=== PATIENT | female | born 1955 | race Hispanic/Latino ===

== ENCOUNTER 2021-08-27 19:50 | Emergency (ER) | payer MEDICARE, MEDICAID, SELFPAY ==
[2021-08-27 19:50] VITALS: BP 142/85; PULSE 77; RESP 16; TEMP 36.6; O2SAT 96; BMI 38.9
--- NOTE | 2021-08-27 20:08 | ED.VIS.LOWEX ---
HPI History of Present Illness Chief Complaint: Lower Extremity Injury Informant: patient and family Onset/Context/Timing Onset: - (Intermittent, worse today) Current Severity: Moderate Maximum Severity: Moderate Narrative Narrative: Patient presents secondary to left knee pain. She had a left knee replacement done at [facility] 3 months ago. She has had intermittent pain since that time. Daughter states usually she will take ibuprofen or Aleve for the pain gets better. Today she is had pain throughout the day. She is still doing some physical therapy. She is using a cane to help her get around. Daughter does note that she seemed to complain of more pain after going down some steps today. She did have 2 falls last week but seem to be doing okay after that. No fall today. PFSH [facility] Medical History Autism High blood pressure Home Medications hydrocodone-acetaminophen 1 tab PO Q6H PRN 3 Days #10 tab 08/27/21 [Rx Last Taken Unknown] Allergy/AdvReac Type Severity Reaction Status Date / Time No Known Allergies Allergy Verified 08/27/21 19:53 Surgical History Knee joint replacement status Social History Smoking Status: Never smoker ROS ROS ED Constitutional Constitutional ED: Denies chills or fever(s) Eyes Eyes: Denies change in vision ENT ENT ED: Denies sore throat Cardiovascular Cardiovascular: Denies chest pain Respiratory/Chest Respiratory/Chest: Denies cough or dyspnea Gastrointestinal Gastrointestinal: Denies abdominal pain, nausea or vomiting Genitourinary Genitourinary ED: Denies dysuria Musculoskeletal Musculoskeletal: Reports arthralgias; Denies back pain or neck pain Integumentary Denies rash Neurologic Neurologic: Denies headache(s) or paresthesias Allergic/Immunologic Allergic/Immunologic ED: Denies urticaria EXAM Physical Exam Const Vital Signs: 08/27/21 19:50 Temperature 97.8 F Temperature Source Temporal Pulse Rate 77 Respiratory Rate 16 Blood Pressure 142/85 H Blood Pressure Mean 104 Pulse Ox 96 Oxygen Delivery Method Room Air Positive well nourished and well developed General Appearance ED: well developed HEENT Reports moist mucous membranes Eyes PERRL Neck full ROM Chest Wall inspection of chest normal and palpation of chest normal Resp normal respiratory effort and clear to auscultation bilaterally Cardio regular rate and regular rhythm GI non-tender Palpation: soft Extremity Extremity Narrative: Mild tenderness along the medial aspect of the right knee. No significant effusion or edema. Some pain with range of motion. Ligaments are tight on testing. No erythema or excessive warmth. Strong distal pulses. Neuro oriented x3 Sensorium / Orientation: alert Skin Lesions: no lesions Rashes: no rashes MDM MDM MDM Narrative Medical decision making narrative: Patient given having [place] for pain. Left knee x-rays obtained. Radiography Diagnostic Testing: Clinical Impression(s) from Imaging Studies Knee X-Ray 08/27/21 20:13 IMPRESSION: Trace joint effusion. Knee replacement. Electronically Signed: Bj Mendez MD (Brooks) at 20:29 EDT Reading Location ID and State: [facility] / [place] , Service support , Treatment and Re-Evaluation Narrative: Left knee x-ray per my interpretation reveals chronic bony changes. Hardware intact. Radiologist interpretation reviewed. Test results discussed with patient and daughter at bedside. Jayden wrap will be applied. I will write her a short course of [place]. She is to follow-up with her surgeon this coming week. Discharge Plan Triage Chief Complaint: Lower Extremity Injury ED Provider: Ibis Alvarado Dx/Rx/DC Orders Clinical Impression: Left knee sprain Instructions: ED Knee Sprain Prescriptions: New hydrocodone-acetaminophen 5-325 mg tablet 1 tab PO Q6H PRN (Reason: pain) 3 Days Qty: 10 RF: 0 Primary Care Provider: Santiago Holloway Referrals: Santiago Holloway MD [Primary Care Provider] - Activity Restrictions/Additional Instructions: Follow-up with your surgeon as discussed. Disposition Disposition: Home, Self Care Discharge Date/Time: 08/27/21 21:00
[2021-08-27] MEDS: HYDROcodone Bitartrate/Apap 5/325 Tablet PO (20:12)
--- NOTE | 2021-08-27 20:13 | RAD_ITS ---
STUDY: X-RAY - LEFT KNEE REASON FOR EXAM: Female, 66 years old. COMPLAINS OF LEFT KNEE PAIN SINCE SURGERY 3 MONTHS AGO, WORSE TODAY. TECHNIQUE: 4 view(s) of the knee. COMPARISON: None. FINDINGS: Normal visualized distal femur. Normal visualized proximal tibia and fibula. Normal proximal tibiofibular articulation. Knee replacement in radiographic alignment. There is no demonstrated joint effusion. The soft tissue structures are unremarkable. RAD/Knee 4 or More Views IMPRESSION: Trace joint effusion. Knee replacement. Electronically Signed: Bj Mendez MD (Brooks) at 20:29 EDT Reading Location ID and State: [facility] / [place] , Service support ,
== END 2021-08-27 21:00 | disposition home or self-care (01) ==
PROVIDERS: Emergency Provider Emergency Medicine; PCP Family Medicine; Visit Provider Emergency Medicine
DX: S83.92XA Sprain of unspecified site of left knee, initial encounter (principal); Z96.659 Presence of unspecified artificial knee joint; F84.0 Autistic disorder; I10 Essential (primary) hypertension; W19.XXXA Unspecified fall, initial encounter
CPT/HCPCS: 73564; 99283

== ENCOUNTER 2021-09-15 14:00 | Emergency (ER) | payer MEDICARE, MEDICAID, SELFPAY ==
[2021-09-15 14:02] VITALS: BP 146/85; PULSE 76; RESP 18; TEMP 36.8; O2SAT 96; BMI 32.6
--- NOTE | 2021-09-15 14:15 | CT_ITS ---
STUDY: CT ABDOMEN AND PELVIS WITH CONTRAST REASON FOR EXAM: Female, 66 years old. Left-sided abdominal pain with nausea. RADIATION DOSAGE (If Supplied By Facility): CTDIvol = ( 15.99 ) mGy, DLP = ( 1123.79 ) mGycm TECHNIQUE: Transaxial images were obtained from the dome of the diaphragm to the symphysis pubis without oral contrast. IV 100mL Isovue-300 was administered. Sagittal and coronal images were reconstructed. Individualized dose optimization techniques were used for this CT. COMPARISON: None. FINDINGS: The visualized lung bases are unremarkable. The visualized portions of the heart are within normal limits. Normal liver. There are multiple gallstones. Normal spleen. Normal pancreas. Normal bilateral adrenal glands. Normal right kidney. Left renal parapelvic cysts. Normal visualized stomach. Normal small intestine. There is circumferential thickening of the wall of the rectum more prominent on the left side. Clinical correlation is recommended. Scattered sigmoid diverticula. The appendix is visualized and appears normal. Normal abdominal aorta. Normal inferior vena cava. Normal retroperitoneum. Normal urinary bladder. Normal abdominal wall. There are diffuse degenerative changes of the visualized lumbar spine. Mild levoscoliosis. CT/Abdomen/Pelvis W IV Cont ONLY IMPRESSION: Diffuse mural thickening of the rectum worse on the left side. Clinical correlation recommended. Cholelithiasis. Electronically Signed: Chaitanya Syed MD at 15:27 EDT ,
--- NOTE | 2021-09-15 14:18 | EDS_ITS ---
HPI HPI - GI History of Present Illness Chief Complaint: Abd Pain Narrative Narrative: Patient presents with left lower quadrant abdominal pain/flank pain that she has had for the last 1 week. Her daughter states that she is supposed to have an ultrasound performed for her pain as an outpatient but it is not for few days. She describes sharp stabbing pain in the left lower quadrant. No problems with bowel movements, no diarrhea or blood in her stool. She denies any dysuria or hematuria. History and physical is mildly limited secondary to the patient's problems with memory. No fevers or chills. No cough. No other symptoms. [facility] Medical History Autism High blood pressure Home Medications hydrocodone-acetaminophen 1 tab PO Q6H PRN 3 Days #10 tab 08/27/21 [Rx Last Taken Unknown] ciprofloxacin HCl [Cipro] 500 mg PO BID #20 tab 09/15/21 [Rx Last Taken Unknown] metronidazole 500 mg PO TID #30 tab 09/15/21 [Rx Last Taken Unknown] Allergy/AdvReac Type Severity Reaction Status Date / Time No Known Allergies Allergy Verified 09/15/21 14:03 Surgical History Knee joint replacement status Social History Smoking Status: Never smoker ROS ROS ED ROS Narrative Constitutional: No fever, no chills. HEENT: No sore throat. No neck pain. No loss of vision. No rhinorrhea. Cardiovascular: No chest pain. No palpitations. No pedal edema. Respiratory: No cough, no shortness of breath. Abdominal: Left lower quadrant abdominal pain. No nausea. No vomiting. No pain with bowel movements. Genitourinary: No dysuria. No hematuria. Left lower quadrant to left flank pain Musculoskeletal: No myalgias. No arthralgias. Neurologic: No headaches. No dizziness. No lightheadedness. Skin: No rash. No change in color. Psychiatric: No depression. No anxiety. EXAM Physical Exam Narrative Exam Narrative: Afebrile. Vital signs noted. HEENT: Normocephalic. Atraumatic. PERRL, EOMI. Neck soft and supple. No point tenderness or step off. Cardiovascular: Regular rate and rhythm. No murmurs, rubs, or gallops a ppreciated. Respiratory: No tachypnea. Lungs clear to auscultation bilaterally. Gastrointestinal: Abdomen soft, mild tenderness left lower quadrant, with normoactive bowel sounds. No rebound or guarding. Chaperoned rectal examination shows no evidence of fluctuance, no pain with digital rectal examination. Neurological: Awake. Alert. Nonfocal, nonlateralizing. Skin: No rash. Normal color. No pallor. Musculoskeletal: No pedal edema. Full range of motion extremities. Const Vital Signs: 09/15/21 14:02 09/15/21 17:16 Temperature 98.2 F Temperature Source Temporal Pulse Rate 76 71 Respiratory Rate 18 14 Blood Pressure 146/85 H 143/91 H Blood Pressure Mean 105 Pulse Ox 96 96 Oxygen Delivery Method Room Air MDM MDM MDM Narrative Medical decision making narrative: Comprehensive work-up was pursued. CBC shows normal white count of 5.9, hemoglobin normal at 13.0, hematocrit normal at 38.9. Normal platelet count of 288. Electrolyte panel shows chloride slightly elevated at 112, glucose elevated appropriately at 108 with a normal to low anion gap of 3. Alk phos slightly elevated at 122, but they state that she has liver problems and she has an AST low at 14. Urinalysis shows no evidence of infection. CT of the abdomen pelvis with IV contrast does show that she has mural wall thickening of the rectum left greater than right. I do not feel that this is an abscess. Patient denies any pain with defecation. She will be started on ciprofloxacin and Flagyl. I was able to discuss the patient with Dr. Olivas with gastroenterology. He agrees with antibiotics and close follow-up next week. At this point in time, she will be discharged for follow-up. She will return with any fever, pain with defecation, new or worsening symptoms. Disposition is discharged home in stable condition. Lab Data Attestation: I reviewed the patient's lab results. Labs: Laboratory Results - last 24 hr 09/15/21 09/15/21 09/15/21 14:25 14:25 14:57 WBC 5.9 RBC 4.28 Hgb 13.0 Hct 38.9 MCV 90.9 MCH 30.4 MCHC 33.4 RDW Std Deviation 44.9 H RDW Coeff of Amish 13.5 Plt Count 288 MPV 9.5 Immature Gran % (Auto) 0.300 Neut % (Auto) 70.5 H Lymph % (Auto) 21.0 [place] % (Auto) 6.2 Eos % (Auto) 1.7 Baso % (Auto) 0.3 Absolute Neuts (auto) 4.2 Absolute Lymphs (auto) 1.25 Nucleated RBC % 0 Sodium 144 Potassium 3.7 Chloride 112 H Carbon Dioxide 29.0 Anion Gap 3 L BUN 21 H Creatinine 0.72 Estim Creat Clear Calc 41.19 Est GFR (MDRD) Af Amer 104 Est GFR (MDRD) Non-Af 86 BUN/Creatinine Ratio 29.3 H Glucose 108 H Calcium 8.7 Total Bilirubin 0.20 AST 14 L ALT 21 Alkaline Phosphatase 122 H Total Protein 6.9 Albumin 3.2 Globulin 3.7 Albumin/Globulin Ratio 0.9 Urine Color Yellow Urine Clarity Clear Urine pH 7.0 Ur Specific [place] 1.010 Urine Protein Negative Urine Glucose (UA) Normal Urine Ketones Negative Urine Occult Blood Negative Urine Nitrite Negative Urine Bilirubin Negative Urine Urobilinogen Normal Ur Leukocyte Esterase Negative Urine RBC 0 SEEN Urine WBC 0 SEEN Ur Squamous Epith Cells 0 SEEN Urine Bacteria 0 SEEN Urine Mucus 0 SEEN Radiography Diagnostic Testing: Clinical Impression(s) from Imaging Studies Abdomen/Pelvis CT 09/15/21 14:15 IMPRESSION: Diffuse mural thickening of the rectum worse on the left side. Clinical correlation recommended. Cholelithiasis. Electronically Signed: Chaitanya Syed MD at 15:27 EDT Reading Location ID and State: [facility] / [place] , Service support , Discharge Plan Triage Chief Complaint: Abd Pain ED Provider: Julio Gagnon Dx/Rx/DC Orders Clinical Impression: Abdominal pain, left lower quadrant, Proctitis Instructions: ED Understanding Colitis, ED Abdominal Pain Unkn Cause Fem, ED Flank Pain, Uncertain Cause Prescriptions: New ciprofloxacin HCl [Cipro] 500 mg tablet 500 mg PO BID Qty: 20 RF: 0 metronidazole 500 mg tablet 500 mg PO TID Qty: 30 RF: 0 No Action hydrocodone-acetaminophen 5-325 mg tablet 1 tab PO Q6H PRN (Reason: pain) 3 Days Qty: 10 RF: 0 Primary Care Provider: Santiago Holloway Referrals: Santiago Holloway MD [Primary Care Provider] - Doroteo Olivas DO [STAFF PHYSICIAN] - 5-7 Days Disposition Disposition: Home, Self Care Discharge Date/Time: 09/15/21 17:17
[2021-09-15] MEDS: 0.9% Normal Saline 1,000 ML 1000 ML IV (14:30)
[2021-09-15] MEDS: Morphine 4 MG/ML Syringe IV (14:30)
[2021-09-15] MEDS: Ondansetron 4 MG/2 ML Vial IV (14:33)
[2021-09-15 14:34] LABS: Absolute Lymphocyte Count 1.25 X10^3/uL (0.83-4.51); Absolute Neutrophil Count 4.2 X10^3/uL (2.0-7.7); Basophil# 0.02 X10^3/uL; Basophil% 0.3 % (0-1); Eosinophils% 1.7 % (0-5); Hematocrit 38.9 % (37-47); Lymphocyte # 1.25 X10^3/ul (0.83-4.51); Mean Corp Hgb Conc 33.4 g/dL (32-36); Mean Corpuscular Hgb 30.4 pg (27.0-32.0); Mean Corpuscular Volume 90.9 fL (81-99); Mean Platelet Vol. 9.5 fl (6.2-12.0); Monocyte# 0.37 X10^3/uL; Monocyte% 6.2 % (0-10); NRBC Flagged by Analyzer 0 % (0-5); Neutrophil # 4.18 X10^3/uL (2.7-7.7); Neutrophil % 70.5 % (47-70); Platelet Count 288 K/mm3 (150-450); RBC Distribution Width CV 13.5 % (11.6-14.6); RBC Distribution Width SD 44.9 fl (35.1-43.9); Red Blood Count 4.28 M/mm3 (4.2-5.4); White Blood Count 5.9 K/mm3 (4.4-11.0)
[2021-09-15 14:50] LABS: ALB/GLOB Ratio 0.9 RATIO (0.9-2.4); AST(SGOT) 14 U/L (15-37); Alanine Aminotransfer ALT/SGPT 21 U/L (13-56); Albumin, Serum 3.2 g/dL (3.2-5.0); Alkaline Phosphatase 122 U/L (45-117); Anion Gap 3 (5-15); BUN 21 mg/dL (7-18); BUN/Creat Ratio 29.3 RATIO (10-20); Calcium,Total 8.7 mg/dL (8.5-10.1); Chloride 112 mmol/L (98-107); Creatinine, Serum 0.72 mg/dL (0.55-1.02); EST Glomerular Filtration Rate 86 mL/min (>60); Est Glom Filt Rate - Afr Amer 104 mL/min (>60); Estimated Creatinine Clearance 41.19 ml/min; Globulin 3.7 g/dL (2.2-4.2); Glucose 108 mg/dL (74-106); Potassium 3.7 mmol/L (3.5-5.1); Protein, Total 6.9 g/dL (6.4-8.2); Sodium Level 144 mmol/L (136-145)
[2021-09-15 15:06] LABS: Bacteria 0 SEEN /hpf (None Seen); Mucous, Urine 0 SEEN /hpf (<or=2+); Red Blood Cells-Urine 0 SEEN /hpf (0-5); Squamous Epithelial Cells - UA 0 SEEN /hpf (5-10); White Blood Cells 0 SEEN /hpf (0-5)
[2021-09-15 15:11] LABS: Color, Urine Yellow (Yellow); Glucose, Dipstick Normal (Normal); Ketone-Dipstick Negative (Negative); Leukocyte Esterase-Dipstick Negative /ul (Negative); Nitrite-Dipstick Negative (Negative); Occult Blood-Urine Negative /ul (Negative); Protein-Dipstick Negative (Negative); Urine Bilirubin Dipstick Negative (Negative); Urine Clarity Clear (Clear); Urine Urobilinogen Normal (Normal)
[2021-09-15] MEDS: metroNIDAZOLE 500 MG Tablet PO (17:14)
[2021-09-15] MEDS: Ciprofloxacin 500 MG Tablet PO (17:14)
[2021-09-15 17:16] VITALS: BP 143/91; PULSE 71; RESP 14; O2SAT 96
== END 2021-09-15 17:17 | disposition home or self-care (01) ==
PROVIDERS: Emergency Provider Emergency Medicine; PCP Family Medicine; Visit Provider Emergency Medicine
DX: R10.32 Left lower quadrant pain (principal); K62.89 Other specified diseases of anus and rectum
CPT/HCPCS: 74177; 80053; 81001; 85025; 99284; J7030; Q9967; A4216; J2405

== ENCOUNTER 2022-01-13 22:05 | Emergency (ER) | payer MEDICARE, SELFPAY ==
[2022-01-13 22:06] VITALS: BP 174/100; PULSE 76; RESP 18; TEMP 36.4; O2SAT 100; BMI 36.6
--- NOTE | 2022-01-13 22:25 | ED.VIS.LOWEX ---
HPI History of Present Illness Chief Complaint: Lower Extremity Injury Informant: patient and family Onset/Context/Timing Onset: Weeks (1) Context: Gradual Onset (worse than usual) Timing: Continuous Quality of Pain: Aching Location: in left knee Current Severity: Moderate Maximum Severity: Severe Worsened by: weight bearing/walking, moving Relieved by: remaining still Associated Symptoms Associated Symptoms: Negative for Parasthesia, Weakness or Loss of Funtion Narrative Narrative: Patient had a left total knee arthroplasty at [facility] 9 or 10 months ago. She has been having chronic pain with it ever since. She had a remote right total knee arthroplasty in [place] years ago and has not no issues with that. It has been hurting worse in the past week. Daughter thinks maybe it is because she has been walking her dog a lot. Patient denies any injury. She denies any redness, fevers, chills, or other systemic symptoms. No numbness or weakness. She denies any new swelling in that leg, no history of DVT or PE. She has an appointment next week with her orthopedic office in [place], she has already been referred to pain management because this has been an ongoing issue that has waxed and waned. She is not in pain management yet. She has been taking Tylenol and ibuprofen, the daughter states that they were trying to avoid narcotics because of the addiction potential. [facility] Medical History Autism High blood pressure Home Medications hydrocodone-acetaminophen 5-325mg 5mg-325mg 1 tab PO Q6H PRN pain 3 days #10 tabs 08/27/21 [Rx Last Taken Unknown] ciprofloxacin HCl 500 mg tablet (Cipro) 500 mg PO BID #20 tabs 09/15/21 [Rx Last Taken Unknown] metronidazole 500 mg tablet 500 mg PO TID #30 tabs 09/15/21 [Rx Last Taken Unknown] hydrocodone-acetaminophen 5-325mg 5mg-325mg 1 tab PO Q6H PRN PRN Pain 3 days #10 TABLETS 01/13/22 [Rx Last Taken Unknown] Allergy/AdvReac Type Severity Reaction Status Date / Time No Known Allergies Allergy Verified 01/13/22 22:07 Surgical History Knee joint replacement status Social History Smoking Status: Never smoker ROS ROS ED Constitutional Constitutional ED: Denies chills or fever(s) Musculoskeletal Musculoskeletal: Reports extremity pain; Denies neck pain Integumentary Denies Abrasions, rash or wounds Neurologic Neurologic: Denies paresthesias or weakness EXAM Physical Exam Const Vital Signs: 01/13/22 22:06 Temperature 97.5 F L Temperature Source Temporal Pulse Rate 76 Respiratory Rate 18 Blood Pressure 174/100 H Blood Pressure Mean 124 Pulse Ox 100 Oxygen Delivery Method Room Air Positive well nourished and well developed General Appearance ED: well developed and NAD Neck full ROM and supple Back/Spine normal ROM and normal to inspection Extremity normal to inspection Extremity Narrative: Well-healed anterior surgical incision left knee, no erythema, no warmth compared with other parts of the left lower extremity and the contralateral knee, intact strong pulse, extensor mechanism intact. Able to bend but only to around 90 degrees or may be a little short of that, she grimaces at that point but it is relatively painless in between. There is no effusion clinically. There is no popliteal tenderness. There is no calf tenderness. There are no skin lesions or rash. Neuro oriented x3, no focal motor deficits and no sensory deficits noted Sensorium / Orientation: alert Psych mental status grossly normal and thought process normal Skin no wounds Rashes: no rashes MDM MDM MDM Narrative Medical decision making narrative: As I discussed with him I do not think this patient has an emergent medical condition. I believe this is an ongoing issue with this joint. I agree with following up with orthopedics. I offered her some pain medication but we discussed the issue with narcotics, she states she has had them since then but only in sparing amounts and only when she needs it, I did review her [facility] report which showed multiple narcotic prescriptions in the past year or 2 but none recently in the past couple weeks or month. Discharge Plan Triage Chief Complaint: Lower Extremity Injury ED Provider: Gerson Moncada Dx/Rx/DC Orders Clinical Impression: Acute pain of left knee, Chronic pain of left knee Instructions: ED Knee Pain of Uncertain Cause Prescriptions: New hydrocodone-acetaminophen [hydrocodone-acetaminophen] 5-325 mg tablet 1 tab PO Q6H PRN PRN (Reason: Pain) 3 Days Qty: 10 0RF No Action hydrocodone-acetaminophen 5-325 mg tablet 1 tab PO Q6H PRN (Reason: pain) 3 Days Qty: 10 0RF ciprofloxacin HCl [Cipro] 500 mg tablet 500 mg PO BID Qty: 20 0RF metronidazole 500 mg tablet 500 mg PO TID Qty: 30 0RF Primary Care Provider: Santiago Holloway Referrals: Orthopaedic, your [Other] - Keep Dwayne appointment Santiago Holloway MD [Primary Care Provider] - Disposition Disposition: Home, Self Care
[2022-01-13] MEDS: HYDROcodone Bitartrate/Apap 5/325 Tablet PO (22:32)
== END 2022-01-13 22:41 | disposition home or self-care (01) ==
LOC: ED 22:37
PROVIDERS: Emergency Provider Emergency Medicine; PCP Family Medicine; Visit Provider Emergency Medicine
DX: M25.562 Pain in left knee (principal); G89.29 Other chronic pain; F84.0 Autistic disorder
CPT/HCPCS: 99282

== ENCOUNTER 2022-03-30 23:05 | Emergency (ER) | payer MEDICARE, MEDICAID, SELFPAY ==
[2022-03-30 23:06] VITALS: BP 153/93; PULSE 92; RESP 18; TEMP 36.8; O2SAT 98; BMI 32.8
--- NOTE | 2022-03-30 23:35 | CT_ITS ---
EXAM: CT lumbar spine. HISTORY: back pain TECHNIQUE: CT Spine Lumbar W/O Contrast Injection A radiation dose optimization technique was used for this scan. COMPARISON: None. LIMITATIONS: None. ALIGNMENT: Mild levoscoliotic curvature. MINERALIZATION: Normal. VERTEBRA BODIES: Normal. DISC SPACES: Mild multilevel degenerative changes with facet hypertrophy contributing to left greater than right mild neuroforaminal narrowing worse at L5-S1. POSTERIOR ELEMENTS: Normal. SACRAL ILIAC JOINTS: Normal. PARASPINAL TISSUES: Normal. OTHER: Left renal sinus cysts. Nonobstructive right nephrolithiasis. No hydroureteronephrosis.. CONCLUSION: 1. No acute fracture or subluxation. 2. Mild degenerative changes. 3. Nonobstructive right nephrolithiasis. Electronically Signed: Brayan Hines MD at 0:13 EST , CT/Spine Lumbar without Contrast IMPRESSION: undefined
[2022-03-30] MEDS: oxyCODONE 5 MG Tablet PO (23:40)
--- NOTE | 2022-03-31 00:10 | EX.ED.DYSGE1 ---
HPI History of Present Illness Chief Complaint: Back Narrative Narrative: Patient is a 67-year-old female with mild mental disability secondary to autism as well as hypertension. She was walking her dog about 5 to 7 days ago when the dog got loose and she tried to run after and she tripped and fell landed on her buttocks/low back. Daughter states that the patient's been taking ibuprofen and Flexeril and she has been using lidocaine patches. Despite this she is having difficulty ambulating from the pain. Patient states that really hurts when she sits up or lies down but if she is at rest the pain is minimal. She denies any dysuria or hematuria and she denies any loss of bowel or bladder control or IV drug use. However because of the persistent pain and difficulty ambulating she was brought in for evaluation [facility] Medical History Autism High blood pressure Home Medications atorvastatin 20 mg tablet mg 03/30/22 [History Last Taken Unknown] oxycodone-acetaminophen 5 mg-325 mg tablet (Percocet) 1 tab PO Q6H PRN pain 3 days #12 tabs 03/31/22 [Rx Last Taken Unknown] Allergy/AdvReac Type Severity Reaction Status Date / Time No Known Allergies Allergy Verified 03/30/22 23:07 Surgical History Knee joint replacement status Social History Smoking Status: Never smoker ROS ROS ED Constitutional Constitutional ED: Denies chills or fever(s) ENT ENT ED: Denies sore throat Cardiovascular Cardiovascular: Denies chest pain Respiratory/Chest Respiratory/Chest: Denies cough or dyspnea Gastrointestinal Gastrointestinal: Denies abdominal pain, diarrhea, nausea or vomiting Genitourinary Genitourinary ED: Denies dysuria or hematuria Musculoskeletal Musculoskeletal: Reports back pain Integumentary Denies rash Neurologic Neurologic: Denies headache(s) Hematologic/Lymphatic Hematologic/Lymphatic: Denies easy bleeding or easy bruising EXAM Physical Exam Const Vital Signs: 03/30/22 23:06 Temperature 98.3 F Temperature Source Temporal Pulse Rate 92 Respiratory Rate 18 Blood Pressure 153/93 H Blood Pressure Mean 113 Pulse Ox 98 Oxygen Delivery Method Room Air Positive well nourished and well developed General Appearance ED: well developed HEENT Reports moist mucous membranes HEENT Narrative: Normocephalic atraumatic Eyes PERRL and EOMs intact bilaterally Neck supple Resp normal respiratory effort and clear to auscultation bilaterally Cardio regular rate and regular rhythm GI normal to inspection, nondistended, normoactive bowel sounds, non-tender, non-distended and no masses Auscultation: normoactive bowel sounds Palpation: soft Back/Spine Back/Spine Narrative: No bony forming or step-off of the thoracic or lumbar spine no midline pain on palpation. There is pain noted of The right sacroiliac joint as well as the right paralumbar and piriformis muscle bellies. Pain does worsen with flexion and extension. No saddle anesthesia. Negative straight leg raise. No clonus or Babinski. Patellar reflexes are plus 2 out of 4 bilaterally Extremity normal to inspection Neuro oriented x3 and CN's II-XII intact bilaterally Sensorium / Orientation: alert Psych mental status grossly normal Skin no rashes or lesions noted Skin Narrative: No abrasions or ecchymosis noted. No secondary changes to suggest infection MDM MDM MDM Narrative Medical decision making narrative: Patient presented to the ER with report of mechanical fall and exam is consistent with musculoskeletal as a cause of her symptoms as there is reproducible pain that worsens with motion. She has no risk factors for cauda equina or epidural abscess. A CAT scan was obtained to check for compression fracture versus spondylolisthesis. CT scan showed no such findings and there were kidney stones noted on right but these are inside the kidney and will not cause pain. Therefore at this time patient needs symptomatic care secondary to her sacroiliac joint dysfunction and low back pain but as there is no signs of neurologic impingement infection or need for acute surgical intervention she is safe for discharge Radiography Diagnostic Testing: Clinical Impression(s) from Imaging Studies Lumbar Spine CT 03/30/22 23:35 IMPRESSION: undefined Discharge Plan Triage Chief Complaint: Back ED Provider: Shahbaz Walters Dx/Rx/DC Orders Clinical Impression: Sacroiliac joint dysfunction, Lumbosacral strain, Autism Instructions: Anatomy of the Sacroiliac Joint, ED Back Pain (Acute or Chronic) Prescriptions: New oxycodone-acetaminophen [Percocet] 5-325 mg tablet 1 tab PO Q6H PRN (Reason: pain) 3 Days Qty: 12 0RF No Action atorvastatin 20 mg tablet Label Comments: TAKE 1 TABLET BY MOUTH EVERY DAY Primary Care Provider: Santiago Holloway Referrals: Santiago Holloway MD [Primary Care Provider] - Activity Restrictions/Additional Instructions: Please continue to use the lidocaine patches to help with pain. Take the prescription grade ibuprofen along with the Percocet so that the pain medication will last longer and reduce pain more as well. You may use heating pads to help reduce symptoms and continued to try and do normal daily activities as lying in bed will make pain worse. Please return to the ER should you have any further concerns Disposition Disposition: Home, Self Care
== END 2022-03-31 00:55 | disposition home or self-care (01) ==
PROVIDERS: Emergency Provider Emergency Medicine; PCP Family Medicine; Visit Provider Emergency Medicine
DX: S39.012A Strain of muscle, fascia and tendon of lower back, initial encounter (principal); M53.3 Sacrococcygeal disorders, not elsewhere classified; W18.09XA Striking against other object with subsequent fall, initial encounter; Y93.02 Activity, running; F84.0 Autistic disorder; F70 Mild intellectual disabilities; I10 Essential (primary) hypertension; Z79.899 Other long term (current) drug therapy
CPT/HCPCS: 72131; 99283